=== PATIENT | male | born 1950 | race Caucasian/White ===

== ENCOUNTER 2016-10-29 05:12 | Emergency (ER) | payer OTHER ==
[2016-10-29 07:06] VITALS: BP 139/69
== END 2016-10-29 07:06 | disposition home or self-care (01) ==
LOC: ED 05:12
DX: S23.3XXA Sprain of ligaments of thoracic spine, initial encounter (principal); S70.12XA Contusion of left thigh, initial encounter; E78.00 Pure hypercholesterolemia, unspecified; V49.9XXA Car occupant (driver) (passenger) injured in unspecified traffic accident, initial encounter; Y93.89 Activity, other specified; Y99.8 Other external cause status; Y92.89 Other specified places as the place of occurrence of the external cause
CPT/HCPCS: 72072; J1885